=== PATIENT | female | born 1945 | race Caucasian/White ===

== ENCOUNTER → 2016-10-21 | Outpatient (CLI) | payer MEDICARE, OTHER ==
[~2016-10-21] MED LIST: ALEVE220 MG PO; AVAPRO150 MG PO; CALCIUM 500 +1 EAC3 PO; COLACE100 MG PO; DULCOLAX10 MG R; ECOTRIN325 MG PO; MAPAP ARTHRITI650 MG PO; NORCO 5-325 MG1 TAB PO; PRILOSEC20 MG PO; THERAGRAN-M1 TAB PO; TYLENOL325 MG PO; VALIUM5 MG PO; ZOCOR20 MG PO
== END | disposition disaster alternative care site (69) ==
LOC: GBCOE 09:30
DX: Z12.31 Encounter for screening mammogram for malignant neoplasm of breast (principal)
CPT/HCPCS: G0202